=== PATIENT | male | born 1960 | race Caucasian/White ===

== ENCOUNTER 2016-09-03 09:15 | Observation (INO) | payer OTHER ==
[~2016-09-03] VITALS: Ht 180.3 cm; Wt 91.4 kg
[2016-09-03] VITALS (12 sets, daily range): BP systolic 123–170; BP diastolic 73–101; PULSE 88–100; RESP 13–20; O2SAT 89–98
[2016-09-03] MEDS ORDERED: 0.9% Sodium Chloride 1,000 ML IV ONE (09:35)
[2016-09-03 09:42] LABS: BASOPHILS % (AUTO) 1.1 % (0-3); EOSINOPHILS % (AUTO) 6.3 % (0-5); MONOCYTES % (AUTO) 9.8 % (4-12); Mean Corpuscular Hemoglobin 28.6 pg (27.0-35.0); Mean Corpuscular Volume 84.7 fL (81-100); NEUTROPHILS % (AUTO) 38.4 % (40-74); Platelet Count 278 bil/L (150-400)
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
[2016-09-03] MEDS ORDERED: Ondansetron 2 mg/mL 2 mL Inj IVPUSH ONE (10:25)
--- NOTE | 2016-09-03 10:33 | DRSVH ---
PROCEDURE: X-RAY PELVIS, ONE OR TWO VIEWS ([id number]) INDICATIONS: trauma TECHNIQUE: 1 view(s) of the pelvis acquired. COMPARISON: None. FINDINGS: Bones: No fractures or dislocations. No suspicious bony lesions. Soft tissues: Visualized bowel gas pattern is normal. No suspicious soft tissue calcifications. IMPRESSION: No displaced fracture seen. If there is continued pain, followup exam or additional krystian ging such as MRI or CT could be performed for further assessment. Dictated by: Tim Simon [facility] Interpreted: Tamara Britton MD on 09/03/2016 at 10:32 Transcribed by: SHAHZAD on 09/03/2016 at 10:32 Approved by: Tamara Britton MD, PhD on 09/03/2016 at 16:45
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
[2016-09-03] MEDS ORDERED: CeFAZolin Inj 2 GM in IV Premix 1 EACH IV ONE (12:10)
[2016-09-03] MEDS: Ondansetron 2 mg/mL 2 mL Inj IVPUSH PRN ×2 (12:14→14:48)
[2016-09-03] MEDS ORDERED: Ketamine 10 mg/mL 20 mL Inj ONE (13:44)
[2016-09-03] MEDS ORDERED: fentaNYL-PF 50 mCg/mL 2 mL Inj ONE ×2 (13:44→18:51)
[2016-09-03] MEDS ORDERED: HYDROmorphone 0.5 mg/0.5 mL iSecure Syringe IVPUSH PRN (13:55)
[2016-09-03] MEDS ORDERED: Lactated Ringer's 1,000 ML IV ONE (14:13)
[2016-09-03] MEDS ORDERED: MetoCLOpramide 5 mg/mL 2 mL Inj IVPUSH ONE (14:45)
[2016-09-03] MEDS ORDERED: FLUT16SP NASAL (15:13)
[2016-09-03] MEDS ORDERED: AZEL137S11 NS (15:13)
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
[2016-09-03] MEDS ORDERED: Bupivacaine-MPF 0.5% W/EPI 30 mL Inj INFILTRATE ONE (16:24)
[2016-09-03] MEDS ORDERED: Bacitracin Zinc 15 Gm Ointment TOPICAL ONE (16:25)
[2016-09-03] MEDS ORDERED: Lidocaine 1%-Epi 1:100,000 50 mL Inj INJ ONE (16:25)
[2016-09-03] MEDS ORDERED: Lactated Ringer's 1,000 ML IV SCH ×2 (16:58→20:10)
[2016-09-03] MEDS ORDERED: Lactated Ringer's 500 ML IV PRN (16:58)
[2016-09-03] MEDS ORDERED: HYDROmorphone 1 mg/mL Inj IVPUSH PRN (17:00)
[2016-09-03] MEDS ORDERED: Dexamethasone 4 mg/mL Inj IVPUSH PRN (17:00)
[2016-09-03] MEDS ORDERED: Ondansetron 2 mg/mL 2 mL Inj IVPUSH PRN (17:00)
[2016-09-03] MEDS ORDERED: EPHEDrine Sulfate 50 mg/mL Inj IVPUSH PRN (17:00)
[2016-09-03] MEDS ORDERED: Phenylephrine 10,000 mCg/mL Inj IVPUSH PRN (17:00)
[2016-09-03] MEDS ORDERED: MetoCLOpramide 5 mg/mL 2 mL Inj IVPUSH PRN (17:00)
[2016-09-03] MEDS: fentaNYL-PF 50 mCg/mL 2 mL Inj IVPUSH PRN ×2 (19:03→19:27)
[2016-09-03] MEDS ORDERED: Acetaminophen 32.5 mg/mL 20 mL Liquid PO PRN (20:10)
[2016-09-04 03:02] VITALS: BP 149/81; PULSE 91; RESP 18; O2SAT 95
--- NOTE | 2016-09-04 03:09 | OP ---
[address] [address] OPERATIVE REPORT PATIENT: ULI LLAMAS : 1960 MR#: [id number] ADMIT: 09/03/2016 JOB ID: [id number] DATE OF SURGERY: 09/03/2016 SURGEON: Walt Vivar MD, [facility]. PREOPERATIVE DIAGNOSIS(ES): 1. Open nasal fracture. 2. Open septal fracture. 3. Complex laceration of the nose and the lip, 12 cm. POSTOPERATIVE DIAGNOSIS(ES): 1. Open nasal fracture. 2. Open septal fracture. 3. Complex laceration of the nose and the lip, 12 cm. INDICATION FOR PROCEDURE: 1. Open nasal fracture. 2. Open septal fracture. 3. Complex laceration of the nose and the lip, 12 cm. OPERATIVE FINDINGS: Fracture of the apex of the left lower lateral cartilage, fracture dislocation of the columellar cartilages from the quadrangular cartilage. Complex laceration to the upper lip penetrating to the anterior nasal spine with 12 cm of complex laceration of the nasal dorsum and nasal tip primarily and upper lip primarily. OPERATIVE PROCEDURE: With the patient supine on the operating table, general orotracheal anesthesia was used. Afrin on cotton was placed intranasal. The mustache was trimmed. Blood clots were removed. Minor cautery was necessary for bleeders in the upper lip skin. Thereafter began a meticulous, lengthy, slow repair, starting at the anterior nasal spine, going up through the transected nostril inferiorly, the inferior portion of the nostril from the left nasal ala. Entering the lip, than the nasal ala, then the cartilage of the dome of the lower lateral cartilage. Then reattaching the columella to the quadrangular cartilage and closing the mucosa intranasally. Then closure of the nasal tip was complex and there was some necrotic tissue that was trimmed and some tissue that's viability is in question, was used in essence as a flap advancement, in essence skin graft the tip of the nose about a centimeter and a quarter region. The nasal dorsum was sutured as it had a 3 cm jagged, irregular suture to the nasal bone, which was not fractured at that location. 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 The procedure was terminated. Bacitracin ointment was applied after cleaning the wounds. Betadine was liberally used several times throughout the procedure after debriding and removal of debris to ensure healing without infection. Procedure terminated. The patient turned over to anesthesia for emergence from anesthetics without known complications.
--- NOTE | 2016-09-04 05:49 | NUR ---
Post surgical: PRN PO tylenol and 2.5 of Roxicodone given 1 x for pain overnight with good relief- pt sleeping comfortably throughout the night. Vitals stable. Tele SR 80-90s. 2L NC placed in pts mouth when sleeping. Pt up for first time early this AM with SBA. pt tolerated well. Gait steady- pt denies any light headed or dizziness. at bedside over night. fall precautions reviewed.
[2016-09-04 08:56] VITALS: PULSE 67
[2016-09-04 09:02] VITALS: BP 124/77; PULSE 70; RESP 18; O2SAT 72
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
[2016-09-04 11:26] VITALS: BP 115/68; PULSE 68; RESP 20; O2SAT 97
[2016-09-04] MEDS ORDERED: ACET325T51 PO (12:10)
--- NOTE | 2016-09-04 17:02 | NUR ---
Discharge Patient discharged at approximately 1215 to home with . Patient given discharge packet with educational material for Nasal fracture, followup with ENT MD for time on 09/07/16. Patient IVs DC'd with catheters intact, lunchroom monitor notified. Applied Bactricin to face, nose and mouth. Patient and acknowleged and understood all information for care. Patient left via wheel chair with all belongings escorted by FUSE ASSEMBLER.
--- NOTE | 2016-09-06 09:17 | PCM.ANEP2 ---
Post Anesthesia Evaluation ASA/CMS Post Anesthesia VS in Patient's Normal Range?: Yes Resp Stable; Airway Patent?: Yes CV Function & Hydration Stable: Yes Mental Status Recovered?: Yes Pain control Satisfactory?: Yes N/V Control Satisfactory?: Yes Nicolas Pérez MD Sep 06, 2016 09:17
--- NOTE | 2016-09-06 09:17 | PCM.ANEP1 ---
Post Anesthesia Phase 1 PACU Phase 1 Assessment Anesthetic Administered: GA Level of Alertness: Sleepy, easy to arouse HOOPER's with Equal Strength: Yes Pain: No Pain Scale Score: 3 Nausea or Vomiting: No Oxygen Delivery: Simple Mask Lungs: Clear to Auscultation, Normal Air Movement Dermatome Level: Full Sensation Nicolas Pérez MD Sep 06, 2016 09:17
--- NOTE | 2016-10-15 11:42 | DIS ---
[address] [address] DISCHARGE SUMMARY PATIENT: ULI LLAMAS : 1960 MR#: [id number] ADMIT: 09/03/2016 JOB ID: [id number] DIS: 09/04/2016 HISTORY: The patient is a 56-year-old male who had an operation, open reduction of nasal fracture, open reduction septal fracture, complete laceration of the nose and lip repaired 12 cm, complex, on 03 September 2016 after nasal trauma and during that general anesthesia hospital stay he had a meticulous lengthy slow repair of the external and internal nasal lacerations and fractures. Postoperatively, the patient did well and was deemed ready for discharge on September 04, 2016 to recheck in the next several days in our office. FINAL DISCHARGE DIAGNOSIS: 1. Nasal fractures. 2. Septal fracture. 3. Multiple complex lacerations of the nasal region. COMPLICATIONS: None.
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
== END 2016-09-04 13:45 | disposition home or self-care (01) ==
LOC: EDBD 09:15 → SED 10:55 → PCC 14:23
PROVIDERS: ADMIT Otolaryngology Facial Plastic Surgery; ATTEND Otolaryngology Facial Plastic Surgery
DX: S02.2XXA Fracture of nasal bones, initial encounter for closed fracture (principal); S01.511A Laceration without foreign body of lip, initial encounter; V18.0XXA Pedal cycle driver injured in noncollision transport accident in nontraffic accident, initial encounter; Y93.89 Activity, other specified; Y92.410 Unspecified street and highway as the place of occurrence of the external cause; Y99.9 Unspecified external cause status
CPT/HCPCS: 13132; 13133; 21335; 36415; 70450; 70486; 71010; 72125; 72170; 80053; 85025; 86850; 96361; 96365; 96375; 96376; 99291; G0378; J0690; J1170; J2250; J2405; J2765; J3010; J7030; J7120